=== PATIENT | male | born 1990 | race Caucasian/White ===

== ENCOUNTER 2016-06-15 22:17 | Emergency (ER) | payer SELFPAY ==
[~2016-06-15] VITALS: Ht 180.3 cm; Wt 99.5 kg
[~2016-06-15 22:17] MED LIST: DOXY100T PO
[2016-06-15 22:19] VITALS: BP 140/105; PULSE 97; RESP 18; TEMP 98.2; O2SAT 100
[2016-06-15] MEDS ORDERED: BUSP10TA PO (22:28)
[2016-06-15] MEDS ORDERED: VIST50CA PO (22:28)
[2016-06-15] MEDS ORDERED: SODIUM CHLOR 0.9% 1000 ML INJ 1,000 ML IV ONE (22:30)
--- NOTE | 2016-06-15 22:32 | PD ---
HPI Chief Complaint: OD/ Ingestion Time Seen by Provider: 22:24 Travel History International Travel<30 days: No Contact w/Intl Traveler<30days: No Traveled to known affect area: No History of Present Illness HPI The patient is 25 year old male who presents to the [facility] emergency department with a history of being found outside a local gas station face down unresponsive. Ambulance services were called and the patient was noted to have agonal respirations. The patient was noted to have a GCS of 3. The patient was bagged for approximately 5 minutes while he was being assessed. The patient was noted by ambulance services to have pinpoint pupils. The patient was given Narcan 2 mg IM 1. The patient became awake and alert. The patient on arrival to this facility reports that he has a history of Dilaudid abuse, however he was recently in rehabilitation and got out 2 weeks ago. The patient reports that today is the first time that he has used again. He reports that he used heroin. The patient denies any suicidal or homicidal ideations. He denies any intent to harm himself with this injection. The patient denies having any recent fevers, cough, congestion, neck pain, chest pain, shortness of breath, abdominal pain, vomiting, diarrhea, urinary symptoms, or other neurologic symptoms. [facility] Past Medical History Narrative Medical The patient's past medical history is significant for endocarditis, medically managed, history of abscess drainage right upper chest. The patient has a history of IV opiate abuse. Asthma: No Autoimmune Disease: No Blood Disorders: No Anxiety: Yes Depression: No Heart Rhythm Problems: No Cancer: No Cardiovascular Problems: Yes (endocarditis) High Cholesterol: No Chemotherapy: No Chest Pain: No Congestive Heart Failure: No COPD: No Cystic Fibrosis: No Diabetes: No Diminished Hearing: No Endocrine: No Gastrointestinal Disorders: No Genitourinary: No Headaches: Yes Immune Disorder: No Musculoskeletal: No Neurologic: Yes Psychiatric: No Reproductive: No Respiratory: No Immunizations Current: Yes Migraines: No Radiation Therapy: Yes Seizures: No Sleep Apnea: No Thyroid Disease: No Past Surgical History Narrative Surgical The patient's past surgical history is significant for incision and drainage of a right upper chest abscess. Appendectomy: No Cholecystectomy: No Other Surgery: Yes (removal of abscess off right collar bone) Social History Alcohol Use: Yes (RARE) Tobacco Use: Yes (occasionally) Substance Use: Yes (the patient reports that he used heroin today.) Allergies-Medications (Allergen,Severity, Reaction): Coded Allergies: Penicillin (Verified Allergy, Severe, hives, 06/16/15) Reported Meds & Prescriptions Reported Meds & Active Scripts Active Reported Vistaril (Hydroxyzine Pamoate) 50 Mg Cap 50 Mg PO TID Buspirone (Buspirone HCl) 10 Mg Tab 10 Mg PO BID Review of Systems Except as stated in HPI: all other systems reviewed are Neg General / Constitutional: No: Fever Eyes: No: Visual changes HENT: No: Headaches Cardiovascular: No: Chest Pain or Discomfort Respiratory: No: Shortness of Breath Gastrointestinal: No: Abdominal Pain Genitourinary: No: Dysuria Musculoskeletal: No: Pain Skin: No Rash Neurologic: No: Weakness Psychiatric: Positive: Substance Abuse, No: Depression, Suicidal Ideations, Mood Disorder, Homicidal Ideation Endocrine: No: Polydipsia Hematologic/Lymphatic: No: Easy Bruising Physical Exam Narrative General: The patient is well-developed well-nourished male in no acute distress. Head and Neck exam: Head is normocephalic atraumatic. Eyes: EOMI, pupils are equal round and reactive to light. Nose: Midline septum with pink mucous membranes Mouth: Dentition unremarkable. Moist mucus membranes. Posterior oropharynx is not erythematous. No tonsillar hypertrophy. Uvula midline. Airway patent. Neck: No palpable lymphadenopathy. No nuchal rigidity. No thyromegaly. Cardiovascular: Regular rate and rhythm without murmurs, gallops, or rubs. Lungs: Clear to auscultation bilaterally. No wheezes, rhonchi, or rales. Abdomen: Soft, without tenderness to palpation in all 4 quadrants of the abdomen. No guarding, rebound, or rigidity. Normal bowel sounds are audible. Extremities: No clubbing, cyanosis, or edema. 2+ pulses in all 4 extremities. Back: No spinous process tenderness to palpation. No costovertebral angle tenderness to palpation. Neurologic Exam: The patient arrives awake and alert. The patient is tearful on arrival. The patient reports frustration that he recently was in rehabilitation for opiate abuse. The patient is oriented to person, place, time, and situation. Cranial nerves 2-12 were intact on exam. Strength is 5/5 in all 4 extremities. No sensory deficits noted. Skin Exam: No rash noted. Intact skin that is warm and dry. Data Data Last Documented VS Vital Signs Date Time Temp Pulse Resp B/P Pulse Ox O2 Delivery O2 Flow Rate FiO2 06/15/16 22:19 98.2 97 18 140/105 100 Orders Electrocardiogram (06/15/16 22:24) Complete Blood Count With Diff (06/15/16 22:24) Lipase (06/15/16 22:24) Urinalysis - C+S If Indicated (06/15/16 22:24) Alcohol (Ethanol) (06/15/16 22:24) Drug Screen, Random Urine (06/15/16 22:24) Tylenol (Acetaminophen) (06/15/16 22:24) Chest, Single Ap (06/15/16 22:24) Iv Access Insert/Monitor (06/15/16 22:24) Ecg Monitoring (06/15/16 22:24) Oximetry (06/15/16 22:24) Sodium Chlor 0.9% 1000 Ml Inj (Ns 1000 M (06/15/16 22:30) Ondansetron Inj (Zofran Inj) (06/15/16 23:30) Comprehensive Metabolic Panel (06/16/16 00:40) Salicylates (Aspirin) (06/16/16 00:40) Sodium Chlor 0.9% 1000 Ml Inj (Ns 1000 M (06/16/16 01:30) Labs Laboratory Tests Test 06/15/16 06/16/16 22:30 01:50 White Blood Count 8.2 TH/MM3 Red Blood Count 4.93 MIL/MM3 Hemoglobin 15.3 GM/DL Hematocrit 44.2 % Mean Corpuscular Volume 89.7 FL Mean Corpuscular Hemoglobin 31.0 PG Mean Corpuscular Hemoglobin 34.5 % Concent Red Cell Distribution Width 12.6 % Platelet Count 213 TH/MM3 Mean Platelet Volume 8.1 FL Neutrophils (%) (Auto) 64.0 % Lymphocytes (%) (Auto) 18.7 % Monocytes (%) (Auto) 6.8 % Eosinophils (%) (Auto) 10.0 % Basophils (%) (Auto) 0.5 % Neutrophils # (Auto) 5.3 TH/MM3 Lymphocytes # (Auto) 1.5 TH/MM3 Monocytes # (Auto) 0.6 TH/MM3 Eosinophils # (Auto) 0.8 TH/MM3 Basophils # (Auto) 0.0 TH/MM3 CBC Comment DIFF FINAL Differential Comment Lipase 71 U/L Acetaminophen Level 2.6 MCG/ML Ethyl Alcohol Level LESS THAN 3 MG/DL Sodium Level 136 MEQ/L Potassium Level 4.2 MEQ/L Chloride Level 105 MEQ/L Carbon Dioxide Level 20.7 MEQ/L Anion Gap 10 MEQ/L Blood Urea Nitrogen 21 MG/DL Creatinine 1.14 MG/DL Estimat Glomerular Filtration 78 ML/MIN Rate Random Glucose 127 MG/DL Calcium Level 8.7 MG/DL Total Bilirubin 0.4 MG/DL Aspartate Amino Transf 26 U/L (AST/SGOT) Alanine Aminotransferase 67 U/L (ALT/SGPT) Alkaline Phosphatase 115 U/L Total Protein 8.2 GM/DL Albumin 4.1 GM/DL Salicylates Level LESS THAN 1.7 MG/DL Urine Color YELLOW Urine Turbidity CLEAR Urine pH 5.5 Urine Specific [place] 1.034 Urine Protein TRACE mg/dL Urine Glucose (UA) NEG mg/dL Urine Ketones 10 mg/dL Urine Occult Blood NEG Urine Nitrite NEG Urine Bilirubin NEG Urine Urobilinogen LESS THAN 2.0 MG/DL Urine Leukocyte Esterase NEG Urine RBC 1 /hpf Urine WBC 2 /hpf Urine Hyaline Casts 14 /lpf Urine Mucus FEW /lpf Microscopic Urinalysis Comment CULT NOT INDICATED Urine Opiates Screen POS Urine Barbiturates Screen NEG Urine Amphetamines Screen NEG Urine Benzodiazepines Screen NEG Urine Cocaine Screen NEG Urine Cannabinoids Screen NEG MDM Medical Decision Making Medical Screen Exam Complete: Yes Emergency Medical Condition: Yes Medical Record Reviewed: Yes Differential Diagnosis Opiate intoxication, versus other substance intoxication Narrative Course During the course of the patients emergency department visit, the patients history, examination, and differential diagnosis were reviewed with the patient. The patient had IV access obtained and blood work sent for analysis. The patient was placed on a slot machine key person with oximetry and blood pressure monitoring. An EKG was done on arrival. The patient's EKG shows a sinus rhythm heart rate of [address] segment elevation or depression, T waves are inverted in V1. The patient was made aware that he will be observed in the emergency department over the next couple of hours for any changes in his level of consciousness or respiratory depression. The patient was started on normal saline 1 L IV fluid bolus. The patients laboratory studies were reviewed and remarkable for a white count of 8.2, hemoglobin 15.3, platelets 213 with 10 eosinophils, CMP is remarkable for CO2 of 20.7, BUN 21, glucose 127, lipase 71, a second liter of normal saline was administered. Urine drug screen is positive for opiates, salicylate less than 1.7, acetaminophen 2.6, alcohol less than 3. Radiology studies were reviewed and remarkable for a chest x-ray that showed no acute abnormality. The patient was observed in the emergency department over 4 hours. The patient had no recurrence of drowsiness, altered mentation, or respiratory depression. The patient will be discharged home. The patient is resting comfortably and feels better, is alert and in no distress. The patients results and examination findings were discussed with the patient. The repeat examination is unremarkable and benign. The history, exam, diagnostic testing, and current condition do not suggest any significant pathology to warrant further testing, continued ED treatment, admission, or surgical evaluation at this point. The vital signs have been stable. The patient does not have uncontrollable pain, intractable vomiting, or other significant symptoms. The patient's condition is stable and appropriate for discharge. The patient will pursue further outpatient evaluation with a primary care physician or other designated or consulting physician as indicated in the discharge instructions. The patient expressed understanding and was agreeable with this plan. Diagnosis Primary Impression: Accidental heroin overdose Qualified Code: T40.1X1A - Accidental heroin overdose, initial encounter Referrals: Primary Care Physician 2 days Patient Instructions: General Instructions, Narcotic Abuse (ED) Additional Instructions: Avoid heroin and other narcotics/opiates such as Dilaudid. Disposition: 01 DISCHARGE HOME Condition: Stable Arely Padron MD Jun 15, 2016 22:32
[2016-06-15 22:51] LABS: AUTOMATED NEUTROPHIL # 5.3 TH/MM3 (1.8-7.7); BASOPHIL % 0.5 % (0.0-2.0); EOSINOPHIL # 0.8 TH/MM3 (0-0.4); HEMATOCRIT 44.2 % (39.0-51.0); HEMO FLAGS DIFF FINAL; LYMPH % 18.7 % (9.0-44.0); LYMPHOCYTE # 1.5 TH/MM3 (1.0-4.8); MEAN CELL VOLUME 89.7 FL (80.0-100.0); MEAN CORPUSCULAR HGB CONC 34.5 % (32.0-36.0); MONO % 6.8 % (0.0-8.0); PLATELET COUNT 213 TH/MM3 (150-450); RED BLOOD COUNT 4.93 MIL/MM3 (4.50-5.90); RED CELL DISTRIBUTION WIDTH 12.6 % (11.6-17.2); WHITE BLOOD COUNT 8.2 TH/MM3 (4.0-11.0)
--- NOTE | 2016-06-15 23:03 | RADRPT ---
EXAM DATE/TIME: 06/15/2016 22:29 [facility] COMPARISON: No previous studies available for comparison. INDICATIONS : Possible overdose. MEDICAL HISTORY : None. SURGICAL HISTORY : None. ENCOUNTER: Initial ACUITY: 1 day PAIN SCORE: 0/10 LOCATION: Bilateral chest FINDINGS: A single view of the chest demonstrates the lungs to be symmetrically aerated without evidence of mas s, infiltrate or effusion. The cardiomediastinal contours are unremarkable. Osseous structures are intact. CONCLUSION: No acute disease. Armen Perry MD on June 15, 2016 at 23:02 Board Certified Radiologist. This report was verified electronically.
[2016-06-15 23:10] LABS: ACETAMINOPHEN 2.6 MCG/ML (10.0-30.0)
[2016-06-15] MEDS ORDERED: ONDANSETRON HCL 4 MG/2 ML VIAL IV PUSH ONE (23:30)
[2016-06-16 01:07] LABS: ALT (GPT) 67 U/L (12-78); ANION GAP 10 MEQ/L (5-15); AST (GOT) 26 U/L (15-37); BICARBONATE 20.7 MEQ/L (21.0-32.0); BLOOD UREA NITROGEN 21 MG/DL (7-18); CHLORIDE 105 MEQ/L (98-107); GLOMERULAR FILTRATION RATE 78 ML/MIN (>89); POTASSIUM 4.2 MEQ/L (3.5-5.1); SODIUM (NA) 136 MEQ/L (136-145)
[2016-06-16 01:09] LABS: ALKALINE PHOSPHATASE 115 U/L (45-117); TOTAL BILIRUBIN ADULT 0.4 MG/DL (0.2-1.0)
[2016-06-16] MEDS ORDERED: SODIUM CHLOR 0.9% 1000 ML INJ 1,000 ML IV ONE (01:30)
[2016-06-16 02:11] LABS: BLOOD, URINE NEG (NEG); COMMENT (UR) CULT NOT INDICATED; CULTURE IF INDICATED CULT NOT INDICATED; GLUCOSE,URINE NEG (NEG); HYALINE CAST, URINE 14 /lpf (RARE); KETONE, URINE 10 mg/dL (NEG); MUCUS URINE FEW /lpf (OCC); NITRITE,URINE NEG (NEG); PH, URINE 5.5 (5.0-8.5); URINE COLOR YELLOW (YELLW/STRAW)
[2016-06-16 02:17] LABS: AMPHETAMINE, URINE NEG (NEG); BARBITURATES, URINE NEG (NEG); COCAINE, URINE NEG (NEG)
--- NOTE | 2016-06-16 08:27 | EKG ---
Date Performed: 06/15/2016 Time Performed: 22:20:46 PTAGE: 25 years EKG: Sinus rhythm NORMAL ECG PREVIOUS TRACING : 06/16/2015 22.16 No significant change from previous tracing noted. DOCTOR: Matty Nunez Interpretating Date/Time 06/16/2016 08:26:29
== END 2016-06-16 03:48 | disposition home or self-care (01) ==
LOC: NEPE 22:17
DX: T40.1X1A Poisoning by heroin, accidental (unintentional), initial encounter (principal); Z86.79 Personal history of other diseases of the circulatory system; Z86.69 Personal history of other diseases of the nervous system and sense organs; Z87.2 Personal history of diseases of the skin and subcutaneous tissue; Z72.0 Tobacco use
CPT/HCPCS: 71010; 80053; 80307; 80320; 80329; 81001; 83690; 85025; 93005; 96361; 96374; 99285; J2405; J7030; G0480

== ENCOUNTER 2017-02-08 09:51 | Emergency (ER) | payer SELFPAY ==
[~2017-02-08] VITALS: Ht 177.8 cm; Wt 92.0 kg
[~2017-02-08 09:51] MED LIST changes: +BUSP10TA PO; -DOXY100T PO; +VIST50CA PO
[2017-02-08 09:57] VITALS: BP 121/57; PULSE 82; RESP 16; TEMP 98.4; O2SAT 98
--- NOTE | 2017-02-08 10:40 | PD ---
HPI Chief Complaint: Abdominal Pain Time Seen by Provider: 10:32 Travel History International Travel<30 days: No Contact w/Intl Traveler<30days: No Traveled to known affect area: No History of Present Illness HPI Patient presents with left upper abdominal pain for 3 days. Aggravated with movement. Reports associated nausea with one or 2 episodes of vomiting. Denies any fever. Denies any change in bowel movements. Denies any new rash. Of note during his presentation patient was arrested by [place] police department. History of endocarditis. PFSH Past Medical History Asthma: No Autoimmune Disease: No Blood Disorders: No Anxiety: Yes Depression: No Heart Rhythm Problems: No Cancer: No Cardiovascular Problems: Yes (endocarditis) High Cholesterol: No Chemotherapy: No Chest Pain: No Congestive Heart Failure: No COPD: No Cystic Fibrosis: No Diabetes: No Diminished Hearing: No Endocrine: No Gastrointestinal Disorders: No Genitourinary: No Headaches: Yes Immune Disorder: No Musculoskeletal: No Neurologic: Yes Psychiatric: No Reproductive: No Respiratory: No Immunizations Current: Yes Migraines: No Radiation Therapy: Yes Seizures: No Sleep Apnea: No Thyroid Disease: No Past Surgical History Appendectomy: No Cholecystectomy: No Other Surgery: Yes (removal of abscess off right collar bone) Social History Alcohol Use: Yes (RARE) Tobacco Use: Yes (occasionally) Substance Use: Yes (the patient reports that he used heroin today.) Allergies-Medications (Allergen,Severity, Reaction): Coded Allergies: penicillin G (Unverified Allergy, Severe, hives, 02/08/17) Reported Meds & Prescriptions Reported Meds & Active Scripts Active Reported Vistaril (Hydroxyzine Pamoate) 50 Mg Cap 50 Mg PO TID Buspirone (Buspirone HCl) 10 Mg Tab 10 Mg PO BID Review of Systems General / Constitutional: No: Fever Eyes: No: Visual changes HENT: No: Headaches Cardiovascular: No: Chest Pain or Discomfort Respiratory: No: Shortness of Breath Gastrointestinal: Positive: Vomiting, Abdominal Pain Genitourinary: No: Dysuria Musculoskeletal: No: Pain Skin: No Rash Neurologic: No: Weakness Psychiatric: No: Depression Endocrine: No: Polydipsia Hematologic/Lymphatic: No: Easy Bruising Physical Exam Narrative GENERAL: Well-nourished, well-developed patient. SKIN: Focused skin assessment warm/dry. HEAD: Normocephalic. EYES: No scleral icterus. No injection or drainage. NECK: Supple, trachea midline. No JVD or lymphadenopathy. CARDIOVASCULAR: Regular rate and rhythm without murmurs, gallops, or rubs. RESPIRATORY: Breath sounds equal bilaterally. No accessory muscle use. GASTROINTESTINAL: Guarding, no hepatosplenomegaly MUSCULOSKELETAL: No cyanosis, or edema. BACK: Nontender without obvious deformity. No CVA tenderness. Data Data Last Documented VS Vital Signs Date Time Temp Pulse Resp B/P (MAP) Pulse Ox O2 Delivery O2 Flow Rate FiO2 02/08/17 13:51 98.6 71 16 141/74 (96) 99 Room Air Orders Orders Al-Mag Hy-Si 40-40-4 Mg/Ml Liq (Mag-Al P (02/08/17 10:45) Lidocaine 2% Viscous (Xylocaine 2% Visco (02/08/17 10:45) Complete Blood Count With Diff (02/08/17 11:18) Comprehensive Metabolic Panel (02/08/17 11:18) Lactic Acid (02/08/17 11:18) Iv Access Insert/Monitor (02/08/17 11:18) Ecg Monitoring (02/08/17 11:18) Oximetry (02/08/17 11:18) NPO (02/08/17 11:18) Pantoprazole Inj (Protonix Inj) (02/08/17 11:30) Sodium Chloride 0.9% Flush (Ns Flush) (02/08/17 11:30) Famotidine Inj (Pepcid Inj) (02/08/17 11:30) Ct Abd/Pel W/O Iv Contrast (02/08/17 12:08) Oral Contrast - Adult (02/08/17 12:12) Diatrizoate Liq ( Gastroneptali Liq) (02/08/17 12:15) MDM Medical Decision Making Medical Screen Exam Complete: Yes Emergency Medical Condition: Yes Differential Diagnosis Gastritis, GERD, gastric ulcer, duodenal ulcer Narrative Course Assessment and plan discussed with patient at bedside. GI cocktail with no benefit. Unable to obtain blood. Patient leaving emergency room in police custody Last 72 hours Impressions Abdomen/Pelvis CT 02/08/17 1208 Signed Impressions: Service Date/Time: Wednesday, February 08, 2017 13:43 - CONCLUSION: Negative CT scan of the abdomen and pelvis. There are no inflammatory changes. Lack of intravenous contrast makes detection of subtle abnormalities such as pyelonephritis difficult. Eduar Lucia MD FACR Diagnosis Primary Impression: Abdominal pain Qualified Codes: R10.12 - Left upper quadrant pain Additional Instructions: Encouraged high-fiber bland BRAT diet. Encouraged fluids. Motrin or Tylenol for any discomfort. Consider [id number] Zantac twice a day. Return to emergency room with any onset of new symptoms Med/Other Pt SpecificInfo: No Meds Exist/No RX given Disposition: 01 DISCHARGE HOME Condition: Good Sony Rosales MD Feb 08, 2017 10:40
[2017-02-08] MEDS ORDERED: ALUMINUM/MAGNESIUM/SIMETH 30 ML CUP PO ONE (10:45)
[2017-02-08] MEDS ORDERED: LIDOCAINE VISCOUS 2% SOLN 15 ML UDC PO ONE (10:45)
[2017-02-08] MEDS ORDERED: SODIUM CHLORIDE 0.9% FLUSH 10 ML FLUSH IV FLUSH PRN (11:30)
[2017-02-08] MEDS ORDERED: FAMOTIDINE 20 MG/2 ML VIAL IV PUSH ONE (11:30)
[2017-02-08] MEDS ORDERED: PANTOPRAZOLE SODIUM 40 MG VIAL IVP ONE (11:30)
[2017-02-08] MEDS ORDERED: DIATRIZOATE MEGLUM/DIATRIZOATE SOD 9 ML CUP ONE (12:15)
[2017-02-08 12:33] VITALS: O2SAT 98
[2017-02-08 13:51] VITALS: BP 141/74; PULSE 71; RESP 16; TEMP 98.6; O2SAT 99
--- NOTE | 2017-02-08 14:02 | RADRPT ---
EXAM DATE/TIME: 02/08/2017 13:43 [facility] COMPARISON: No previous studies available for comparison. INDICATIONS : Left upper quadrant pain. ORAL CONTRAST: Prescribed oral contrast ingested. RADIATION DOSE: 14.34 CTDIvol (mGy) MEDICAL HISTORY : None SURGICAL HISTORY : None. ENCOUNTER: Initial ACUITY: 4 - 6 days PAIN SCALE: 6/10 LOCATION: Left upper quadrant TECHNIQUE: Volumetric scanning of the abdomen and pelvis was performed. Using automated exposure control and ad justment of the mA and/or kV according to patient size, radiation dose was kept as low as reasonably achievable to obtain optimal diagnostic quality images. DICOM format image data is available electro nically for review and comparison. FINDINGS: LOWER LUNGS: The visualized lower lungs are clear. LIVER: Homogeneous density without lesion. There is no dilation of the biliary tree. No calcified gallston es. SPLEEN: Normal size without lesion. PANCREAS: Within normal limits. ADRENAL GLANDS: Within normal limits. RIGHT KIDNEY: Normal in size and shape. There is no mass, stone, or hydronephrosis. LEFT KIDNEY: Normal in size and shape. There is no mass, stone, or hydronephrosis.. VASCULAR: There is no aortic aneurysm. BOWEL/MESENTERY: The stomach, small bowel, and colon demonstrate no acute abnormality. There is no free intraperitone al air or fluid. RETROPERITONEUM: There is no lymphadenopathy. PELVIC CONTENTS: Bladder, are unremarkable ABDOMINAL WALL: Within normal limits. INGUINAL: There is no lymphadenopathy or hernia. MUSCULOSKELETAL: Within normal limits for patient age. CONCLUSION: Negative CT scan of the abdomen and pelvis. There are no inflammatory changes. Lack of intravenous contrast makes detection of subtle abnormalities such as pyelonephritis difficult. Eduar Lucia MD FACR on February 08, 2017 at 13:58 Board Certified Radiologist. This report was verified electronically.
== END 2017-02-08 14:32 | disposition home or self-care (01) ==
LOC: PHED 09:51
DX: R10.12 Left upper quadrant pain (principal); F17.210 Nicotine dependence, cigarettes, uncomplicated; I38 Endocarditis, valve unspecified
CPT/HCPCS: 74176; 99284; Q9963

== ENCOUNTER 2017-02-16 13:56 | Observation (INO) | payer SELFPAY ==
[~2017-02-16] VITALS: Ht 177.8 cm; Wt 90.5 kg
[2017-02-16 14:04] VITALS: O2SAT 100
--- NOTE | 2017-02-16 14:35 | PD ---
HPI Chief Complaint: Abdominal Pain Time Seen by Provider: 14:18 Travel History International Travel<30 days: No Contact w/Intl Traveler<30days: No Traveled to known affect area: No History of Present Illness HPI 36 years old male complains of left-sided chest pain and left upper quadrant abdominal pain. Patient states that the pain started 11 days ago. Patient states the pain is sharp pain localized to left chest and left upper quadrant of the abdomen. Patient denies any pain radiation. Patient denies palpitation nausea diaphoresis. Patient states the pain is worse with deep breathing or movement. Patient denies in coughing congestion fever chills. Patient denies any nausea vomiting diarrhea. Patient has history IV drug abuse. Patient was seen in emergency room 8 days ago and has blood test done and CT scan abdomen and pelvis done which was negative for acute pathology. A stent states that he has history of endocarditis. PFSH Past Medical History Hx Anticoagulant Therapy: No Asthma: No Autoimmune Disease: No Blood Disorders: No Anxiety: Yes Depression: No Heart Rhythm Problems: No Cancer: No Cardiovascular Problems: No High Cholesterol: No Chemotherapy: No Chest Pain: No Congestive Heart Failure: No COPD: No Cerebrovascular Accident: No Cystic Fibrosis: No Diabetes: No Diminished Hearing: No Endocrine: No Gastrointestinal Disorders: No Genitourinary: No Headaches: Yes Immune Disorder: No Musculoskeletal: No Neurologic: Yes Psychiatric: No Reproductive: No Respiratory: No Immunizations Current: Yes Migraines: No Radiation Therapy: Yes Seizures: No Sleep Apnea: No Thyroid Disease: No ?: Not Past Surgical History Appendectomy: No Cholecystectomy: No Hysterectomy: No Other Surgery: Yes (removal of abscess off right collar bone) Social History Alcohol Use: No Tobacco Use: No Substance Use: Yes (heroin, opioids) Allergies-Medications (Allergen,Severity, Reaction): Coded Allergies: penicillin G (Unverified Allergy, Severe, hives, 02/16/17) Reported Meds & Prescriptions Reported Meds & Active Scripts Active No Active Prescriptions or Reported Medications Review of Systems General / Constitutional: No: Fever Eyes: No: Visual changes HENT: No: Headaches Cardiovascular: Positive: Chest Pain or Discomfort Respiratory: No: Shortness of Breath Gastrointestinal: Positive: Abdominal Pain Genitourinary: No: Dysuria Musculoskeletal: No: Pain Skin: No Rash Neurologic: No: Weakness Psychiatric: No: Depression Endocrine: No: Polydipsia Hematologic/Lymphatic: No: Easy Bruising Physical Exam Narrative GENERAL: Well-nourished, well-developed patient. SKIN: Focused skin assessment warm/dry. HEAD: Normocephalic. EYES: No scleral icterus. No injection or drainage. NECK: Supple, trachea midline. No JVD or lymphadenopathy. CARDIOVASCULAR: Regular rate and rhythm without murmurs, gallops, or rubs. RESPIRATORY: Breath sounds equal bilaterally. No accessory muscle use. GASTROINTESTINAL: Abdomen soft, non-tender, nondistended. MUSCULOSKELETAL: Patient has mild to moderate tenderness and palpation left chest wall area on palpation. No crepitus no deformity noted. Breath sounds equal bilaterally. BACK: Nontender without obvious deformity. No CVA tenderness. Neurologic exam normal. Data Data Last Documented VS Vital Signs Date Time Temp Pulse Resp B/P (MAP) Pulse Ox O2 Delivery O2 Flow Rate FiO2 02/16/17 14:04 100 Room Air Orders Orders Electrocardiogram (02/16/17 14:27) Complete Blood Count With Diff (02/16/17 14:27) Comprehensive Metabolic Panel (02/16/17 14:27) Creatine Kinase (Cpk) (02/16/17 14:27) Troponin I (02/16/17 14:27) Prothrombin Time / Inr (Pt) (02/16/17 14:27) Act Partial Throm Time (Ptt) (02/16/17 14:27) C-Reactive Protein (Crp) (02/16/17 14:27) Westergren Sedimentation Rate (02/16/17 14:27) Chest, Single Ap (02/16/17 14:27) Iv Access Insert/Monitor (02/16/17 14:27) Ecg Monitoring (02/16/17 14:27) Oximetry (02/16/17 14:27) D-Dimer (02/16/17 14:27) Labs Laboratory Tests Test 02/16/17 15:02 02/16/17 15:20 White Blood Count 11.4 TH/MM3 Red Blood Count 5.25 MIL/MM3 Hemoglobin 15.2 GM/DL Hematocrit 47.7 % Mean Corpuscular Volume 90.9 FL Mean Corpuscular Hemoglobin 29.0 PG Mean Corpuscular Hemoglobin Concent 31.9 % Red Cell Distribution Width 13.5 % Platelet Count 432 TH/MM3 Mean Platelet Volume 7.7 FL Neutrophils (%) (Auto) 60.1 % Lymphocytes (%) (Auto) 18.4 % Monocytes (%) (Auto) 6.7 % Eosinophils (%) (Auto) 9.6 % Basophils (%) (Auto) 5.2 % Neutrophils # (Auto) 6.9 TH/MM3 Lymphocytes # (Auto) 2.1 TH/MM3 Monocytes # (Auto) 0.8 TH/MM3 Eosinophils # (Auto) 1.1 TH/MM3 Basophils # (Auto) 0.6 TH/MM3 CBC Comment AUTO DIFF Differential Total Cells Counted 100 Neutrophils % (Manual) 61 % Lymphocytes % 20 % Monocytes % 10 % Eosinophils % 9 % Neutrophils # (Manual) 7.0 TH/MM3 Differential Comment FINAL DIFF MANUAL Platelet Estimate NORMAL Platelet Morphology Comment NORMAL Red Cell Morphology Comment NORMAL Erythrocyte Sedimentation Rate 46 mm/hr Blood Urea Nitrogen 9 MG/DL Creatinine 0.85 MG/DL Random Glucose 73 MG/DL Total Protein 9.1 GM/DL Albumin 3.7 GM/DL Calcium Level 8.8 MG/DL Alkaline Phosphatase 100 U/L Aspartate Amino Transf (AST/SGOT) 12 U/L Alanine Aminotransferase (ALT/SGPT) 44 U/L Total Bilirubin 0.2 MG/DL Sodium Level 138 MEQ/L Potassium Level 4.0 MEQ/L Chloride Level 106 MEQ/L Carbon Dioxide Level 23.4 MEQ/L Anion Gap 9 MEQ/L Estimat Glomerular Filtration Rate 109 ML/MIN Total Creatine Kinase 33 U/L Troponin I LESS THAN 0.02 NG/ML C-Reactive Protein 2.48 MG/DL Prothrombin Time 10.7 SEC Prothromb Time International Ratio 1.0 RATIO Activated Partial Thromboplast Time 33.1 SEC D-Dimer Quantitative (PE/DVT) 1.36 MG/L [facility] Medical Decision Making Medical Screen Exam Complete: Yes Emergency Medical Condition: Yes Interpretation(s) Last Impressions Chest X-Ray 02/16/17 1287 Signed Impressions: Service Date/Time: Thursday, February 16, 2017 14:48 - CONCLUSION: No acute disease. Eduar Lucia MD FACR 1706 p.m. CBC WBC 11.4. Normal differential. CMP within normal limit. Cardiac enzymes are normal. C-reactive protein 2.48. Differential Diagnosis Differential diagnosis including musculoskeletal, pleurisy, pneumonia, pneumothorax, angina, ME, PE, endocarditis. Narrative Course 26 years old male with left-sided chest wall pain. History of IV drug abuse. Scripts No Active Prescriptions or Reported Meds Miah Gomes MD Feb 16, 2017 14:34
--- NOTE | 2017-02-16 14:53 | RADRPT ---
EXAM DATE/TIME: 02/16/2017 14:48 [facility] COMPARISON: CHEST SINGLE AP, June 15, 2016, 22:29. INDICATIONS : Chest pain. MEDICAL HISTORY : None. SURGICAL HISTORY : None. ENCOUNTER: Initial ACUITY: 2 weeks PAIN SCORE: 6/10 LOCATION: Left lower chest FINDINGS: A single view of the chest demonstrates the lungs to be symmetrically aerated without evidence of mas s, infiltrate or effusion. The cardiomediastinal contours are unremarkable. Osseous structures are intact. CONCLUSION: No acute disease. Eduar Lucia MD FACR on February 16, 2017 at 14:46 Board Certified Radiologist. This report was verified electronically.
[2017-02-16 15:50] LABS: AUTOMATED NEUTROPHIL # 6.9 TH/MM3 (1.8-7.7); BASOPHIL # 0.6 TH/MM3 (0-0.2); BASOPHIL % 5.2 % (0.0-2.0); EOSINOPHIL # 1.1 TH/MM3 (0-0.4); EOSINOPHIL % 9.6 % (0.0-4.0); HEMATOCRIT 47.7 % (39.0-51.0); LYMPH % 18.4 % (9.0-44.0); LYMPHOCYTE # 2.1 TH/MM3 (1.0-4.8); MEAN CELL VOLUME 90.9 FL (80.0-100.0); MEAN CORPUSCULAR HGB CONC 31.9 % (32.0-36.0); MONO % 6.7 % (0.0-8.0); NEUT % 60.1 % (16.0-70.0); PLATELET COUNT 432 TH/MM3 (150-450); RED BLOOD COUNT 5.25 MIL/MM3 (4.50-5.90); RED CELL DISTRIBUTION WIDTH 13.5 % (11.6-17.2); WHITE BLOOD COUNT 11.4 TH/MM3 (4.0-11.0)
[2017-02-16 15:52] LABS: HEMO FLAGS AUTO DIFF
[2017-02-16 15:56] LABS: ANION GAP 9 MEQ/L (5-15); AST (GOT) 12 U/L (15-37); BICARBONATE 23.4 MEQ/L (21.0-32.0); BLOOD UREA NITROGEN 9 MG/DL (7-18); CHLORIDE 106 MEQ/L (98-107); GLOMERULAR FILTRATION RATE 109 ML/MIN (>89); SODIUM (NA) 138 MEQ/L (136-145)
[2017-02-16 16:01] LABS: ALKALINE PHOSPHATASE 100 U/L (45-117); ALT (GPT) 44 U/L (12-78); CREATINE KINASE 33 U/L (39-308); TOTAL BILIRUBIN ADULT 0.2 MG/DL (0.2-1.0)
[2017-02-16 16:09] LABS: APTT (PATIENT) 33.1 SEC (24.3-30.1); PROTHROMBIN TIME - PATIENT 10.7 SEC (9.8-11.6)
[2017-02-16 16:33] LABS: EOSINOPHILS 9 % (0-4); PLATELET ESTIMATE SMEAR NORMAL (NORMAL); PLATELET MORPHOLOGY NORMAL (NORMAL); POLYS (SEG NEUTROPHILS) 61 % (16-70); SCAN/DIFF FINAL DIFF MANUAL; WBC DIFF SAMPLE 100
[2017-02-16 17:24] VITALS: BP 142/91; PULSE 65; RESP 16; O2SAT 98
[2017-02-16] MEDS ORDERED: VANCOMYCIN INJ 1,000 MG in SODIUM CHLOR 0.9% 250 ML INJ 250 ML IV ONE (17:30)
[2017-02-16] MEDS ORDERED: AZTREONAM INJ 1,000 MG in SODIUM CHLORIDE 0.9% INJ 100 ML IV ONE (17:30)
[2017-02-16] MEDS ORDERED: IOHEXOL 350 MG/ML 10 ML VIAL (for RAD DIAG) IVCONTRAST ONE (19:37)
[2017-02-16] MEDS ORDERED: ONDANSETRON HCL 4 MG/2 ML VIAL IVP PRN (19:45)
[2017-02-16] MEDS ORDERED: ACETAMINOPHEN 325 MG TAB PO PRN (19:45)
[2017-02-16] MEDS ORDERED: ACETAMINOPHEN 325 MG TAB PO ONE (19:45)
[2017-02-16] MEDS ORDERED: SODIUM CHLORIDE 0.9% FLUSH 10 ML FLUSH IV FLUSH PRN (19:45)
--- NOTE | 2017-02-16 19:48 | RADRPT ---
EXAM DATE/TIME: 02/16/2017 19:32 [facility] COMPARISON: No previous studies available for comparison. INDICATIONS : Left lower sided chest pain. IV CONTRAST: 80 cc Omnipaque 350 (iohexol) IV RADIATION DOSE: 23.24 CTDIvol (mGy) MEDICAL HISTORY : Substance abuse. SURGICAL HISTORY : None. ENCOUNTER: Initial ACUITY: 1 day PAIN SCALE: 4/10 LOCATION: Left chest TECHNIQUE: Volumetric scanning of the chest was performed using a pulmonary embolism protocol MIP images were re constructed. Using automated exposure control and adjustment of the mA and/or kV according to patien t size, radiation dose was kept as low as reasonably achievable to obtain optimal diagnostic quality images. DICOM format image data is available electronically for review and comparison. Follow-up recommendations for detected pulmonary nodules are based at a minimum on nodule size and pa tient risk factors according to Fleischner Society Guidelines. FINDINGS: PULMONARY ARTERIES: No filling defects are seen in the pulmonary arteries through the segmental level. LUNGS: Mild right base atelectasis. PLEURAE: There is no pleural thickening or pleural effusion. MEDIASTINUM: There is good visualization of the great vessels of the middle mediastinum. No evidence of mediastin al or hilar adenopathy/mass. MUSCULOSKELETAL: Within normal limits for patient age. MISCELLANEOUS: The visualized upper abdominal organs demonstrate no acute abnormality. CONCLUSION: No pulmonary embolus. Mild right base atelectasis. Brian Sanchez MD on February 16, 2017 at 19:45 Board Certified Radiologist. This report was verified electronically.
[2017-02-16 21:14] VITALS: BP 134/65; PULSE 79; RESP 18; TEMP 98.2; O2SAT 98
[2017-02-16 21:23] VITALS: PULSE 72
[2017-02-16] MEDS: SODIUM CHLORIDE 0.9% FLUSH 10 ML FLUSH IV FLUSH SCH (21:34)
[2017-02-16 23:30] LABS: CREATINE KINASE 32 U/L (39-308)
[2017-02-16 23:38] VITALS: BP 137/63; PULSE 77; RESP 18; TEMP 98.2; O2SAT 95
[2017-02-17] VITALS (10 sets, daily range): BP systolic 115–135; BP diastolic 52–77; PULSE 50–84; RESP 18; TEMP 97.7–98.5; O2SAT 96–99
[2017-02-17 04:45] LABS: AUTOMATED NEUTROPHIL # 5.4 TH/MM3 (1.8-7.7); BASOPHIL # 0.1 TH/MM3 (0-0.2); BASOPHIL % 0.7 % (0.0-2.0); EOSINOPHIL % 10.2 % (0.0-4.0); HEMATOCRIT 39.9 % (39.0-51.0); LYMPH % 26.1 % (9.0-44.0); LYMPHOCYTE # 2.6 TH/MM3 (1.0-4.8); MEAN CELL VOLUME 87.5 FL (80.0-100.0); MEAN CORPUSCULAR HEMOGLOBIN 29.3 PG (27.0-34.0); MEAN CORPUSCULAR HGB CONC 33.5 % (32.0-36.0); MONO % 8.4 % (0.0-8.0); NEUT % 54.6 % (16.0-70.0); PLATELET COUNT 376 TH/MM3 (150-450); RED BLOOD COUNT 4.56 MIL/MM3 (4.50-5.90); RED CELL DISTRIBUTION WIDTH 12.8 % (11.6-17.2); WHITE BLOOD COUNT 9.9 TH/MM3 (4.0-11.0)
[2017-02-17 04:47] LABS: HEMO FLAGS AUTO DIFF
[2017-02-17 04:48] LABS: CREATINE KINASE 44 U/L (39-308)
--- NOTE | 2017-02-17 05:08 | HHI.HP ---
[facility] Service [facility] Primary Care Physician No Primary Care Physician Admission Diagnosis chest pain. History IV drug abuse. Diagnoses: (1) Chest wall pain (2) Atypical chest pain (3) History of bacteremia (4) Shortness of breath Chief Complaint: pain across left lower anterior rib area for 2 weeks Travel History International Travel<30 Days: No Contact w/Intl Traveler <30 Da: No Traveled to Known Affected Are: No History of Present Illness Mr. Maurice is a pleasant 26 y/o male with a history of IV drug abuse who presented to the emergency room on 02/16/2017 complaining of anterior left lower chest pain. The patient reports that the pain has been present for 2 weeks and denies any related trauma. He states he has not been in any fights or had any accidents. The pain is worse with movement, deep breathing, cough, or sneezing. The patient states the pain is relieved with [id number] aspirin that he takes as needed. Regarding cough, he states he occasionally has a tickle in his throat and has to cough to clear but denies any productive cough or chronic cough. Denies any recent cold symptoms. He did experience nausea with vomiting about 15 days ago lasting for 1 week. He states he vomited a couple of times over the course of that week and states that the left anterior chest wall pain started following that illness. He reports fever of 100 8 days ago. He denies any chills. He does report mild shortness of breath with exertion. He denies any dysuria or hematuria. He denies any current nausea, vomiting, or diarrhea. He denies any black or red stools. Review of Systems Except as stated in HPI: all other systems reviewed are Neg Past Family Social History Past Medical History Possible hepatitis - never followed up with health department for test results but was told at a drug treatment facility that a "finger stick" test showed possible hepatitis MSSA bacteremia with heart murmur - negative BILL - January 2015 . Past Surgical History denies . Reported Medications Aspirin 325 mg PRN pain . Allergies: Coded Allergies: penicillin G (Unverified Allergy, Severe, hives, 02/16/17) Active Ordered Medications Current Medications Vancomycin HCl 1000 mg/Sodium Chloride 250 ml @ 250 mls/hr ONCE ONCE IV Last administered on 02/16/17 18:51; Start 02/16/17 at 17:30; Stop 02/16/17 at 18:29 ; Status DC Aztreonam 1000 mg/ Sodium Chloride 100 ml @ 200 mls/hr ONCE ONCE IV Last administered on 02/16/17 21:33; Start 02/16/17 at 17:30; Stop 02/16/17 at 17:59 ; Status DC Iohexol (Omnipaque 350 Inj) 80 ml STK-MED ONCE IVCONTRAST Last administered on 02/16/17 19:37; Start 02/16/17 at 19:37; Stop 02/16/17 at 19:38; Status DC Acetaminophen (Tylenol) 650 mg ONCE ONCE PO Last administered on 02/16/17 19: 47; Start 02/16/17 at 19:45; Stop 02/16/17 at 19:46; Status DC Sodium Chloride (NS Flush) 2 ml UNSCH PRN IV FLUSH FLUSH AFTER USING IV ACCESS ; Start 02/16/17 at 19:45 Sodium Chloride (NS Flush) 2 ml BID IV FLUSH Last administered on 02/16/17 21: 34; Start 02/16/17 at 21:00 Acetaminophen (Tylenol) 650 mg Q4H PRN PO TEMP > 100.4 Last administered on 02:21; Start 02/16/17 at 19:45 Ondansetron HCl (Zofran Inj) 4 mg Q6H PRN IVP NAUSEA OR VOMITING; Start at 19:45 . Family History denies family history of diabetes, hypertension, or cancer Social History Tobacco: denies Alcohol: denies Illicit Drugs: IVDA - opiates, sometimes cocaine . Physical Exam Vital Signs Vital Signs Date Time Temp Pulse Resp B/P (MAP) Pulse Ox O2 Delivery O2 Flow Rate FiO2 02/17/17 03:41 98.1 74 18 135/52 (79) 97 02/17/17 00:01 72 02/16/17 23:38 98.2 77 18 137/63 (87) 95 02/16/17 21:23 72 02/16/17 21:14 98.2 79 18 134/65 (88) 98 02/16/17 17:24 65 16 142/91 (108) 98 Room Air 02/16/17 14:04 100 Room Air Physical Exam GENERAL: This is a male patient, in no apparent distress. SKIN: No rashes, ecchymoses or lesions. Cool and dry. HEAD: Atraumatic. Normocephalic. No temporal or scalp tenderness. EYES: No scleral icterus. No injection or drainage. ENT: Nose without bleeding, purulent drainage or septal hematoma. NECK: Trachea midline. No JVD. CARDIOVASCULAR: Regular rate and rhythm without murmurs, gallops, or rubs. RESPIRATORY: Breath sounds equal bilaterally. No wheezes, rales, or rhonchi. GASTROINTESTINAL: Abdomen soft, non-tender, nondistended. No guarding. MUSCULOSKELETAL: Extremities without clubbing, cyanosis, or edema. Left chest wall exquisite pain along lower anterior middle point chest tenderness. NEUROLOGICAL: Awake and alert. Motor and sensory grossly within normal limits. Normal speech. . Laboratory Laboratory Tests Test 02/16/17 15:02 02/16/17 15:20 02/16/17 22:35 02/17/17 03:30 White Blood Count 11.4 Red Blood Count 5.25 Hemoglobin 15.2 Hematocrit 47.7 Mean Corpuscular Volume 90.9 Mean Corpuscular Hemoglobin 29.0 Mean Corpuscular Hemoglobin Concent 31.9 Red Cell Distribution Width 13.5 Platelet Count 432 Mean Platelet Volume 7.7 Neutrophils (%) (Auto) 60.1 Lymphocytes (%) (Auto) 18.4 Monocytes (%) (Auto) 6.7 Eosinophils (%) (Auto) 9.6 Basophils (%) (Auto) 5.2 Neutrophils # (Auto) 6.9 Lymphocytes # (Auto) 2.1 Monocytes # (Auto) 0.8 Eosinophils # (Auto) 1.1 Basophils # (Auto) 0.6 CBC Comment AUTO DIFF Differential Total Cells Counted 100 Neutrophils % (Manual) 61 Lymphocytes % 20 Monocytes % 10 Eosinophils % 9 Neutrophils # (Manual) 7.0 Differential Comment FINAL DIFF MANUAL Platelet Estimate NORMAL Platelet Morphology Comment NORMAL Red Cell Morphology Comment NORMAL Erythrocyte Sedimentation Rate 46 Blood Urea Nitrogen 9 Creatinine 0.85 Random Glucose 73 Total Protein 9.1 Albumin 3.7 Calcium Level 8.8 Alkaline Phosphatase 100 Aspartate Amino Transf (AST/SGOT) 12 Alanine Aminotransferase (ALT/SGPT) 44 Total Bilirubin 0.2 Sodium Level 138 Potassium Level 4.0 Chloride Level 106 Carbon Dioxide Level 23.4 Anion Gap 9 Estimat Glomerular Filtration Rate 109 Total Creatine Kinase 33 32 Troponin I LESS THAN 0.02 LESS THAN 0.02 C-Reactive Protein 2.48 Prothrombin Time 10.7 Prothromb Time International Ratio 1.0 Activated Partial Thromboplast Time 33.1 D-Dimer Quantitative (PE/DVT) 1.36 Result Diagram: 02/16/17 1502 02/16/17 [address] Angiography 02/16/17 1749 Signed Impressions: Service Date/Time: Thursday, February 16, 2017 19:32 - CONCLUSION: No pulmonary embolus. Mild right base atelectasis. Brian Sanchez MD Chest X-Ray 02/16/17 1427 Signed Impressions: Service Date/Time: Thursday, February 16, 2017 14:48 - CONCLUSION: No acute disease. Eduar Lucia MD FACR . Caprini VTE Risk Assessment Caprini VTE Risk Assessment: No/Low Risk (score <= 1) Caprini Risk Assessment Model Point Value = 1 Point Value = 2 Point Value = 3 Point Value = 5 Age 41-60 Minor surgery BMI > 25 kg/m2 Swollen legs Varicose veins or History of unexplained or recurrent spontaneous Oral contraceptives or hormone replacement Sepsis (< 1 month) Serious lung disease, including pneumonia (< 1 month) Abnormal pulmonary function Acute myocardial infarction Congestive heart failure (< 1 month) History of inflammatory bowel disease Medical patient at bed rest Age 61-74 Arthroscopic surgery Major open surgery (> 45 min) Laparoscopic surgery (> 45 min) Malignancy Confined to bed (> 72 hours) Immobilizing plaster cast Central venous access Age >= 75 History of VTE Family history of VTE Factor V Leiden Prothrombin [id number] Lupus anticoagulant Anticardiolipin antibodies Elevated serum homocysteine Heparin-induced thrombocytopenia Other congenital or acquired thrombophilia Stroke (< 1 month) Elective arthroplasty Hip, pelvis, or leg fracture Acute spinal cord injury (< 1 month) Prophylaxis Regimen Total Risk Factor Score Risk Level Prophylaxis Regimen 0-1 Low Early ambulation 2 Moderate Order ONE of the following: *Sequential Compression Device (SCD) *Heparin 5000 units SQ BID 3-4 Higher Order ONE of the following medications: *Heparin 5000 units SQ TID *Enoxaparin/Lovenox 40 mg SQ daily (WT < 150 kg, CrCl > 30 mL/min) *Enoxaparin/Lovenox 30 mg SQ daily (WT < 150 kg, CrCl > 10-29 mL/min) *Enoxaparin/Lovenox 30 mg SQ BID (WT < 150 kg, CrCl > 30 mL/min) AND/OR *Sequential Compression Device (SCD) 5 or more Highest Order ONE of the following medications: *Heparin 5000 units SQ TID (Preferred with Epidurals) *Enoxaparin/Lovenox 40 mg SQ daily (WT < 150 kg, CrCl > 30 mL/min) *Enoxaparin/Lovenox 30 mg SQ daily (WT < 150 kg, CrCl > 10-29 mL/min) *Enoxaparin/Lovenox 30 mg SQ BID (WT < 150 kg, CrCl > 30 mL/min) AND *Sequential Compression Device (SCD) Assessment and Plan Problem List: (1) Atypical chest pain ICD Code: R07.89 - Other chest pain (2) Chest wall pain ICD Code: R07.89 - Other chest pain (3) IVDA Status: Acute (4) History of bacteremia ICD Code: Z87.898 - Personal history of other specified conditions (5) Shortness of breath ICD Code: R06.02 - Shortness of breath Assessment and Plan 26 y/o male IVDA and history of MSSA bacteremia/chest wall abscess in January 2015 who presents with 2 weeks of chest pain: Atypical chest pain - left anterior chest wall pain IVDA - suspect costochondritis based on examination - history of bacteremia due to gram positive bacteria, history of chest wall abscess in January 2015 - Patient afebrile and reports temperature of 100 that occurred once 8 days ago , CRP - 2.48, ESR - 46, WBC 11.4 with eosinophilia and basophilia - Check blood cultures to r/o bacteremia - follow results - Toradol 15 mg IV q6h PRN pain Shortness of breath with exertion - D-dimer 1.36, chest CTA negative for pulmonary embolus; mild right base atelectasis - Oxygen saturation 97% on room air - given atypical chest pain: check serial EKGs and cardiac enzymes to r/o ACS - first two cardiac enzymes are negative; EKGs x 2 reviewed personally - shows first degree AV block with nonspecific T changes in II and V2 - no ischemic changes noted DVT prophylaxis - early ambulation Discussed Condition With Dr. Mohan and RN . Estella Rosales Feb 17, 2017 05:08
[2017-02-17 05:38] LABS: SCAN/DIFF AUTO DIFF CONFIRMED
--- NOTE | 2017-02-17 09:24 | HHI.PR ---
Subjective Remarks Follow-up chest pain. Patient reporting tenderness in the left lower chest wall. No overlying erythema. Denies dyspnea, cough. Objective Vitals Vital Signs Date Time Temp Pulse Resp B/P (MAP) Pulse Ox O2 Delivery O2 Flow Rate FiO2 02/17/17 07:13 97.7 67 18 115/69 (84) 97 02/17/17 04:05 66 02/17/17 03:41 98.1 74 18 135/52 (79) 97 02/17/17 00:01 72 02/16/17 23:38 98.2 77 18 137/63 (87) 95 02/16/17 21:23 72 02/16/17 21:14 98.2 79 18 134/65 (88) 98 02/16/17 17:24 65 16 142/91 (108) 98 Room Air 02/16/17 14:04 100 Room Air I/O 02/16/17 02/16/17 02/16/17 02/17/17 02/17/17 02/17/17 07:00 15:00 23:00 07:00 15:00 23:00 Intake Total 250 ml Balance 250 ml Intake IV Total 250 ml # Voids 3 Result Diagram: 02/17/17 0330 02/16/17 [address] Angiography 02/16/17 1749 Signed Impressions: Service Date/Time: Thursday, February 16, 2017 19:32 - CONCLUSION: No pulmonary embolus. Mild right base atelectasis. Brian Sanchez MD Chest X-Ray 02/16/17 1427 Signed Impressions: Service Date/Time: Thursday, February 16, 2017 14:48 - CONCLUSION: No acute disease. Eduar Lucia MD FACR Objective Remarks General: No acute distress. Heart: Regular rate and rhythm. No murmur. Lungs: Clear to auscultation bilaterally. No wheezes, rales, or rhonchi. Breathing is nonlabored. Chest wall: Tenderness over the left lower chest wall. Abdomen: Soft, nontender, nondistended. Extremities: No lower extremity edema. Psych: Alert and oriented. Procedures None Urinary Catheter: No Vascular Central Line Catheter: No A/P Problem List: (1) Atypical chest pain ICD Code: R07.89 - Other chest pain (2) Chest wall pain ICD Code: R07.89 - Other chest pain (3) IVDA Status: Acute (4) History of bacteremia ICD Code: Z87.898 - Personal history of other specified conditions (5) Shortness of breath ICD Code: R06.02 - Shortness of breath Assessment and Plan 1. Chest pain, atypical: The patient has pain/tenderness in the anterior left lower chest wall. He has a history of IV drug abuse and prior chest wall abscess on the right. There is no overlying erythema or fluctuance. Suspect costochondritis. Blood cultures are pending. Toradol as needed. Serial cardiac enzymes are negative. Monitor on telemetry. 2. Dyspnea on exertion: CTA negative for pulmonary embolus. Oxygen saturation stable on room air. 3. DVT prophylaxis: Ambulation. Discharge Planning Possible discharge home tomorrow if symptoms improve. Dell Mustafa MD Feb 17, 2017 09:24
[2017-02-17] MEDS: KETOROLAC TROMETHAMINE 30 MG/ML (IVP) VIAL IV PUSH PRN ×3 (09:52→23:15)
[2017-02-17] MEDS: SODIUM CHLORIDE 0.9% FLUSH 10 ML FLUSH IV FLUSH SCH ×2 (09:53→21:36)
[2017-02-17 12:07] LABS: BICARBONATE 25.4 MEQ/L (21.0-32.0); POTASSIUM 4.2 MEQ/L (3.5-5.1)
--- NOTE | 2017-02-17 13:54 | EKG ---
Date Performed: 02/16/2017 Time Performed: 17:03:39 PTAGE: 26 years EKG: Sinus rhythm WITH FIRST DEGREE AV BLOCK NONSPECIFIC T-WAVE ABNORMALITY ABNORMAL ECG Compared to prior tracing no significant change PREVIOUS TRACING : 06/15/2016 22.20 DOCTOR: Amparo Mcdonald Interpretating Date/Time 02/17/2017 13:52:08
--- NOTE | 2017-02-17 13:54 | EKG ---
Date Performed: 02/16/2017 Time Performed: 21:17:45 PTAGE: 26 years EKG: Sinus rhythm WITH FIRST DEGREE AV BLOCK MODERATE INTRAVENTRICULAR CONDUCTION DELAY NONSPECIFIC T-WAVE ABNORMALITY ABNORMAL ECG Compared to prior tracing no significant change PREVIOUS TRACING : 02/16/2017 17.03 DOCTOR: Amparo Mcdonald Interpretating Date/Time 02/17/2017 13:51:56
--- NOTE | 2017-02-17 13:54 | EKG ---
Date Performed: 02/17/2017 Time Performed: 02:11:02 PTAGE: 26 years EKG: Sinus rhythm WITH SINUS ARRHYTHMIA NONSPECIFIC T-WAVE ABNORMALITY BORDERLINE ECG Compared to prior tracing no sig nificant change PREVIOUS TRACING : 02/16/2017 21.17 DOCTOR: Amparo Mcdonald Interpretating Date/Time 02/17/2017 13:51:48
[2017-02-18 03:29] VITALS: BP 145/69; PULSE 69; RESP 18; TEMP 98.2; O2SAT 97
[2017-02-18 07:55] VITALS: BP 112/65; PULSE 75; RESP 18; TEMP 97.7; O2SAT 98
[2017-02-18] MEDS: SODIUM CHLORIDE 0.9% FLUSH 10 ML FLUSH IV FLUSH SCH (08:00)
--- NOTE | 2017-02-18 10:47 | HHI.PR ---
Subjective Remarks Follow up chest pain. Patient states that he still has pain in the left lower rib cage, but somewhat better this morning. No other pain at this time. Denies dyspnea. Feels ready to go home. Objective Vitals Vital Signs Date Time Temp Pulse Resp B/P (MAP) Pulse Ox O2 Delivery O2 Flow Rate FiO2 02/18/17 07:55 97.7 75 18 112/65 (81) 98 02/18/17 03:29 98.2 69 18 145/69 (94) 97 02/18/17 00:15 18 02/17/17 23:50 98.2 80 18 132/70 (90) 96 02/17/17 20:44 98.3 81 18 134/77 (96) 99 02/17/17 20:11 76 02/17/17 15:22 98.5 84 18 132/68 (89) 99 02/17/17 11:45 98.1 66 18 133/61 (85) 98 I/O 02/17/17 02/17/17 02/17/17 02/18/17 02/18/17 02/18/17 07:00 15:00 23:00 07:00 15:00 23:00 # Voids 3 Result Diagram: 02/17/17 0330 02/17/17 [address] Angiography 02/16/17 1749 Signed Impressions: Service Date/Time: Thursday, February 16, 2017 19:32 - CONCLUSION: No pulmonary embolus. Mild right base atelectasis. Brian Sanchez MD Chest X-Ray 02/16/17 1427 Signed Impressions: Service Date/Time: Thursday, February 16, 2017 14:48 - CONCLUSION: No acute disease. Eduar Lucia MD FACR Objective Remarks General: No acute distress. Heart: Regular rate and rhythm. No murmur. Lungs: Clear to auscultation bilaterally. No wheezes, rales, or rhonchi. Breathing is nonlabored. Chest wall: Mild tenderness over the left lower chest wall. Abdomen: Soft, nontender, nondistended. Extremities: No lower extremity edema. Psych: Alert and oriented. Procedures None Urinary Catheter: No Vascular Central Line Catheter: No A/P Problem List: (1) Atypical chest pain ICD Code: R07.89 - Other chest pain (2) Chest wall pain ICD Code: R07.89 - Other chest pain (3) IVDA Status: Acute (4) History of bacteremia ICD Code: Z87.898 - Personal history of other specified conditions (5) Shortness of breath ICD Code: R06.02 - Shortness of breath Assessment and Plan 1. Chest pain, atypical: The patient has pain/tenderness in the anterior left lower chest wall. He has a history of IV drug abuse and prior chest wall abscess on the right. There is no overlying erythema or fluctuance. Suspect costochondritis. Blood cultures are pending. Toradol as needed. Serial cardiac enzymes are negative. Monitor on telemetry. 2. Dyspnea on exertion: CTA negative for pulmonary embolus. Oxygen saturation stable on room air. 3. DVT prophylaxis: Ambulation. Discharge Planning Discharge home in stable condition. Follow-up with PCP. Patient advised to return to the hospital if he develops worsening pain, swelling, or overlying erythema. Regular diet. Activity as tolerated. Dell Mustafa MD Feb 18, 2017 10:47
[2017-02-18] MEDS ORDERED: MEDI220T PO (10:49)
--- NOTE | 2017-02-18 10:50 | HHI.DCPOC ---
Discharge Care Plan Diagnosis: (1) Atypical chest pain (2) Chest wall pain Goals to Promote Your Health * To prevent worsening of your condition and complications * To maintain your health at the optimal level Directions to Meet Your Goals Take your medications as prescribed Follow your dietary instruction Follow activity as directed Keep your appointments as scheduled Take your immunizations and boosters as scheduled If your symptoms worsen call your PCP, if no PCP go to Urgent Care Center or Emergency Room Smoking is Dangerous to Your Health. Avoid second hand smoke Call the 24-hour hour crisis hotline for domestic abuse at Dell Mustafa MD Feb 18, 2017 10:50
== END 2017-02-18 13:27 | disposition home or self-care (01) ==
LOC: NEPE 13:56 → NEDA 17:53 → NEPFCDU 20:54
PROVIDERS: ADMIT Family Medicine; ATTEND Family Medicine
DX: R07.89 Other chest pain (principal); R06.02 Shortness of breath; F19.10 Other psychoactive substance abuse, uncomplicated; F41.9 Anxiety disorder, unspecified; R51 Headache; R94.31 Abnormal electrocardiogram [ECG] [EKG]; Z87.898 Personal history of other specified conditions
CPT/HCPCS: 71010; 71275; 80048; 80053; 82550; 84484; 85007; 85025; 85027; 85379; 85610; 85652; 85730; 86140; 87040; 93005; 96365; 96375; 96376; 99285; G0378; J1885; J3370; J7050; Q9967

== ENCOUNTER 2017-07-27 13:10 | Emergency (ER) | payer SELFPAY ==
[~2017-07-27 13:10] MED LIST changes: -BUSP10TA PO; +MEDI220T PO; -VIST50CA PO
[2017-07-27 13:14] VITALS: BP 134/90; PULSE 115; RESP 18; TEMP 98.5; O2SAT 99
--- NOTE | 2017-07-27 14:15 | RADRPT ---
EXAM DATE/TIME: 07/27/2017 13:48 [facility] COMPARISON: No previous studies available for comparison. INDICATIONS : Right ankle pain and swelling from drug use. MEDICAL HISTORY : None. SURGICAL HISTORY : None. ENCOUNTER: Initial ACUITY: 3 days PAIN SCORE: 7/10 LOCATION: Right lateral ankle FINDINGS: Three view exam was performed of the right ankle. The bony structures are in normal alignment. No e vidence of fracture, dislocation, or erosive bony change. Soft tissue swelling overlying the lateral malleolus. The ankle mortise is intact. No radiopaque foreign bodies are seen. Bony mineralization is normal. CONCLUSION: 1. Soft tissue swelling overlying the lateral malleolus. No evidence for erosive bony change or acute fracture. Jarrod Maier MD on July 27, 2017 at 14:12 Board Certified Radiologist. This report was verified electronically.
[2017-07-27 14:30] LABS: AUTOMATED NEUTROPHIL # 15.5 TH/MM3 (1.8-7.7); BASOPHIL % 0.2 % (0.0-2.0); EOSINOPHIL % 0.2 % (0.0-4.0); HEMATOCRIT 40.9 % (39.0-51.0); HEMOGLOBIN 14.2 GM/DL (13.0-17.0); LYMPH % 7.9 % (9.0-44.0); LYMPHOCYTE # 1.4 TH/MM3 (1.0-4.8); MEAN CORPUSCULAR HEMOGLOBIN 30.5 PG (27.0-34.0); MEAN CORPUSCULAR HGB CONC 34.6 % (32.0-36.0); MEAN PLATELET VOLUME 7.6 FL (7.0-11.0); MONO % 7.3 % (0.0-8.0); MONOCYTE # 1.3 TH/MM3 (0-0.9); NEUT % 84.4 % (16.0-70.0); PLATELET COUNT 418 TH/MM3 (150-450); RED BLOOD COUNT 4.65 MIL/MM3 (4.50-5.90); RED CELL DISTRIBUTION WIDTH 15.3 % (11.6-17.2); WHITE BLOOD COUNT 18.3 TH/MM3 (4.0-11.0)
[2017-07-27 14:53] LABS: ALBUMIN 3.8 GM/DL (3.4-5.0); ALT (GPT) 51 U/L (12-78); AST (GOT) 18 U/L (15-37); BICARBONATE 27.7 MEQ/L (21.0-32.0); BLOOD UREA NITROGEN 14 MG/DL (7-18); CHLORIDE 100 MEQ/L (98-107); CREATININE 1.68 MG/DL (0.60-1.30); GLOMERULAR FILTRATION RATE 50 ML/MIN (>89); GLUCOSE,RANDOM 138 MG/DL (74-106); SODIUM (NA) 135 MEQ/L (136-145)
[2017-07-27 14:55] LABS: ALKALINE PHOSPHATASE 103 U/L (45-117); TOTAL BILIRUBIN ADULT 0.4 MG/DL (0.2-1.0); TOTAL PROTEIN 9.1 GM/DL (6.4-8.2)
[2017-07-27] MEDS ORDERED: SODIUM CHLOR 0.9% 1000 ML INJ 1,000 ML IV ONE (15:00)
[2017-07-27] MEDS ORDERED: SODIUM CHLORIDE 0.9% FLUSH 10 ML FLUSH IV FLUSH PRN (15:00)
--- NOTE | 2017-07-27 15:01 | RADRPT ---
EXAM DATE/TIME: 07/27/2017 14:28 [facility] COMPARISON: No previous studies available for comparison. INDICATIONS : Right leg swelling. MEDICAL HISTORY : Right leg swelling. IV Substance use. SURGICAL HISTORY : Karon in head. ENCOUNTER: Initial ACUITY: 3 days PAIN SCORE: 0/10 LOCATION: Right leg. TECHNIQUE: Venous ultrasound of the leg was performed from the inguinal ligament to the proximal calf. Real-tomás e, color Doppler and spectral tracing, compression and augmentation techniques were used. FINDINGS: There is normal compressibility of the deep venous system from the inguinal region to the proximal ca lf. No echogenic clot is seen in the lumen of the common femoral, femoral, popliteal, and posterior tibial veins. There is a normal response of the venous system to proximal and distal augmentation an d respiration. CONCLUSION: 1. No DVT identified. Henry Lucia MD on July 27, 2017 at 14:59 Board Certified Radiologist. This report was verified electronically.
--- NOTE | 2017-07-27 15:04 | PD ---
HPI Chief Complaint: Edema Time Seen by Provider: 14:46 Travel History International Travel<30 days: No Contact w/Intl Traveler<30days: No Traveled to known affect area: No History of Present Illness HPI 26-year-old male with PMH of IVDA presents to the ED for evaluation of less than 24 hour history of redness, pain and swelling of the right lower extremity. Patient states that he attempted to inject cocaine in the area 2 days ago. He endorses chills today. He denies fever, nausea, vomiting, chest pain, palpitations, shortness of breath, numbness, tingling, weakness, limitations to range of motion of the right lower extremity. He endorses using IV heroin today. He also endorses using cocaine, benzodiazepines. He denies history of MRSA. He denies alcohol use. He states that he took a single dose of an unknown antibiotic at home. PFSH Past Medical History Hx Anticoagulant Therapy: No Asthma: No Autoimmune Disease: No Blood Disorders: No Anxiety: Yes Depression: No Heart Rhythm Problems: No Cancer: No Cardiovascular Problems: No High Cholesterol: No Chemotherapy: No Chest Pain: No Congestive Heart Failure: No COPD: No Cerebrovascular Accident: No Cystic Fibrosis: No Diabetes: No Diminished Hearing: No Endocrine: No Gastrointestinal Disorders: No Genitourinary: No Headaches: Yes Immune Disorder: No Musculoskeletal: No Neurologic: No Psychiatric: No Reproductive: No Respiratory: No Immunizations Current: Yes Migraines: No Radiation Therapy: No Seizures: No Sleep Apnea: No Thyroid Disease: No Past Surgical History Appendectomy: No Cholecystectomy: No Hysterectomy: No Other Surgery: Yes (removal of abscess off right collar bone) Social History Alcohol Use: No Tobacco Use: No Substance Use: Yes (12/2016 OPIATES) Allergies-Medications (Allergen,Severity, Reaction): Coded Allergies: penicillin G (Unverified Allergy, Severe, hives, 02/16/17) Reported Meds & Prescriptions Reported Meds & Active Scripts Active Naproxen Sodium 220 Mg Tab 220 Mg PO BID PRN Review of Systems Except as stated in HPI: all other systems reviewed are Neg Physical Exam Narrative GENERAL: Well-nourished, well-developed white male in no acute distress. SKIN: Focused skin assessment warm/dry. Tattoos noted. HEAD: Normocephalic. EYES: No scleral icterus. No injection or drainage. Pinpoint pupils bilaterally. NECK: Supple, trachea midline. No JVD or lymphadenopathy. CARDIOVASCULAR: Regular rate and rhythm without murmurs, gallops, or rubs. RESPIRATORY: Breath sounds clear and equal bilaterally. No accessory muscle use. GASTROINTESTINAL: Abdomen soft, non-tender, nondistended. MUSCULOSKELETAL: No cyanosis, or edema. FOCUSED RIGHT LOWER EXTREMITY EXAM: 2+ DP pulse. Tender, warm, erythema and edema of the lateral malleolus extending into the foot and to the mid sandoval. Single puncture wound behind the medial malleolus. It is indurated but without fluctuance. No active drainage. BACK: Nontender without obvious deformity. No CVA tenderness. Data Data Last Documented VS Vital Signs Date Time Temp Pulse Resp B/P (MAP) Pulse Ox O2 Delivery O2 Flow Rate FiO2 07/27/17 15:54 07/27/17 15:23 98.4 97 14 93 Orders Orders Ankle, Complete ([id number]) (07/27/17 ) Complete Blood Count With Diff (07/27/17 13:36) Comprehensive Metabolic Panel (07/27/17 13:36) Lactic Acid Sepsis Protocol (07/27/17 13:36) Blood Culture (07/27/17 13:36) Westergren Sedimentation Rate (07/27/17 13:36) Us Leg Venous Doppler (07/27/17 ) Iv Access Insert/Monitor (07/27/17 14:48) Ecg Monitoring (07/27/17 14:48) Oximetry (07/27/17 14:48) Sodium Chloride 0.9% Flush (Ns Flush) (07/27/17 15:00) Sodium Chlor 0.9% 1000 Ml Inj (Ns 1000 M (07/27/17 15:00) Ketorolac Inj (Toradol Inj) (07/27/17 15:30) Consult Infectious Disease (07/27/17 ) Case Management Consult (07/27/17 ) Asp:No Reaction To [place]/Vanc (Asp Crit (07/27/17 15:30) Asp: Does Not Meet Inpt Admit (Asp Crit: (07/27/17 15:30) Asp: Iv Antibiotics Admit Only (Asp Crit (07/27/17 15:30) Asp: Location Of Dalbav Admin (Asp Crit: (07/27/17 15:30) [facility] [place] [facility] [place] (Misc Pharmacy (07/27/17 15:30) Dalbavancin Inj (Dalvance Inj) (07/27/17 15:29) (Hub Use Only)Inp Phy Cons/Ref (07/27/17 ) Ed Discharge Order (07/27/17 17:41) Labs Laboratory Tests Test 07/27/17 14:11 07/27/17 16:00 White Blood Count 18.3 TH/MM3 Red Blood Count 4.65 MIL/MM3 Hemoglobin 14.2 GM/DL Hematocrit 40.9 % Mean Corpuscular Volume 88.0 FL Mean Corpuscular Hemoglobin 30.5 PG Mean Corpuscular Hemoglobin Concent 34.6 % Red Cell Distribution Width 15.3 % Platelet Count 418 TH/MM3 Mean Platelet Volume 7.6 FL Neutrophils (%) (Auto) 84.4 % Lymphocytes (%) (Auto) 7.9 % Monocytes (%) (Auto) 7.3 % Eosinophils (%) (Auto) 0.2 % Basophils (%) (Auto) 0.2 % Neutrophils # (Auto) 15.5 TH/MM3 Lymphocytes # (Auto) 1.4 TH/MM3 Monocytes # (Auto) 1.3 TH/MM3 Eosinophils # (Auto) 0.0 TH/MM3 Basophils # (Auto) 0.0 TH/MM3 CBC Comment DIFF FINAL Differential Comment Erythrocyte Sedimentation Rate 44 mm/hr Blood Urea Nitrogen 14 MG/DL Creatinine 1.68 MG/DL Random Glucose 138 MG/DL Total Protein 9.1 GM/DL Albumin 3.8 GM/DL Calcium Level 9.0 MG/DL Alkaline Phosphatase 103 U/L Aspartate Amino Transf (AST/SGOT) 18 U/L Alanine Aminotransferase (ALT/SGPT) 51 U/L Total Bilirubin 0.4 MG/DL Sodium Level 135 MEQ/L Potassium Level 4.3 MEQ/L Chloride Level 100 MEQ/L Carbon Dioxide Level 27.7 MEQ/L Anion Gap 7 MEQ/L Estimat Glomerular Filtration Rate 50 ML/MIN Lactic Acid Level 1.3 mmol/L MDM Medical Decision Making Medical Screen Exam Complete: Yes Emergency Medical Condition: Yes Differential Diagnosis Abscess versus cellulitis versus sepsis versus other Narrative Course 26-year-old male with PMH of IVDA presents to the ED for evaluation of less than 24 hour history of redness, pain and swelling of the right lower extremity. Patient states that he attempted to inject cocaine in the area 2 days ago. He endorses chills today. He endorses using IV heroin on the right side of his neck today. He also endorses using cocaine, benzodiazepines. He denies history of MRSA. He denies alcohol use. He states that he took a single dose of an unknown antibiotic at home. Patient afebrile, tachycardic on patient. Tachycardia resolves in the exam room. Exam consistent with right lower extremity cellulitis. No evidence of abscess. Patient is a good candidate for Rosalia Carroll. This was ordered and improved. Patient's instructed to rest and elevate the leg, keep his small wound clean and dry and covered, follow with the [place] [facility]. We discussed reasons to return to the ED. The patient indicated understanding of instructions and is agreeable to the care plan. Patient is stable and discharged home. Diagnosis Primary Impression: Cellulitis of right lower extremity Referrals: [facility] Primary Care Physician Patient Instructions: Cellulitis (ED), Dalbavancin (By injection), General Instructions Additional Instructions: Rest, hydrate. Return to normal, gentle activity as tolerated. Seek outpatient treatment for IV drug abuse at [facility]. Take [id number] medications such as ibuprofen as directed on the label, as needed for pain. Keep the wound clean, dry and covered. Return to the ED for worsening symptoms including fever, worsening redness, swelling of the right lower extremity. Follow-up with the primary care provider or [facility]. Return to the ED for any urgent or emergent medical condition. Disposition: 01 DISCHARGE HOME Condition: Stable Lisha Melvin Jul 27, 2017 15:04
[2017-07-27 15:23] VITALS: BP 122/70; PULSE 97; RESP 14; TEMP 98.4; O2SAT 93
[2017-07-27] MEDS ORDERED: DALBAVANCIN INJ 1,500 MG in DEXTROSE 5% IN WATE 500 ML INJ 500 ML IV STA ×2 (15:29)
[2017-07-27] MEDS ORDERED: KETOROLAC TROMETHAMINE 30 MG/ML (IVP) VIAL IV PUSH ONE (15:30)
[2017-07-27] MEDS ORDERED: ASP: No known hypersensitivity to Vanco, Telavancin, Dalbavancin OTHER ONE (15:30)
[2017-07-27] MEDS ORDERED: ASP: Does not meet inpatient admission criteria OTHER ONE (15:30)
[2017-07-27] MEDS ORDERED: MISCELLANEOUS PHARMACY INFORMATION XX ONE (15:30)
[2017-07-27] MEDS ORDERED: ASP: Location of Dalbavancin administration OTHER ONE (15:30)
[2017-07-27] MEDS ORDERED: ASP: Only reason for admit - IV antibiotics OTHER ONE (15:30)
== END 2017-07-27 18:23 | disposition home or self-care (01) ==
LOC: NEPE 13:10
DX: L03.115 Cellulitis of right lower limb (principal); F41.9 Anxiety disorder, unspecified; F19.90 Other psychoactive substance use, unspecified, uncomplicated; Z88.0 Allergy status to penicillin
CPT/HCPCS: 73610; 80053; 83605; 85025; 85652; 87040; 93971; 96361; 96374; 96375; 99285; J0875; J1885; J7030; J7060